=== PATIENT | male | born 1970 | race Two or more races ===

== ENCOUNTER 2020-09-19 13:01 | Emergency (ER) | payer MEDICAID, OTHER ==
[~2020-09-19] VITALS: Ht 157.5 cm; Wt 99.8 kg
[2020-09-19 13:02] VITALS: BP 114/81
== END 2020-09-19 15:28 | disposition home or self-care (01) ==
LOC: ER 13:01
DX: S00.81XA Abrasion of other part of head, initial encounter (principal); K21.9 Gastro-esophageal reflux disease without esophagitis; I10 Essential (primary) hypertension; W18.09XA Striking against other object with subsequent fall, initial encounter; Y93.89 Activity, other specified; Y92.89 Other specified places as the place of occurrence of the external cause; Y99.8 Other external cause status

== ENCOUNTER 2022-10-28 10:08 | Emergency (ER) | payer MEDICAID ==
[~2022-10-28] VITALS: Ht 152.4 cm; Wt 91.2 kg
[2022-10-28 11:17] VITALS: BP 143/78
== END 2022-10-28 12:59 | disposition home or self-care (01) ==
LOC: ER 10:08
DX: S02.2XXA Fracture of nasal bones, initial encounter for closed fracture (principal); S29.011A Strain of muscle and tendon of front wall of thorax, initial encounter; S05.12XA Contusion of eyeball and orbital tissues, left eye, initial encounter; R56.9 Unspecified convulsions; K21.9 Gastro-esophageal reflux disease without esophagitis; I10 Essential (primary) hypertension; W22.8XXA Striking against or struck by other objects, initial encounter; Y93.89 Activity, other specified; Y92.89 Other specified places as the place of occurrence of the external cause; Y99.8 Other external cause status
CPT/HCPCS: 70486; 71101

== ENCOUNTER 2023-05-28 12:45 | Emergency (ER) | payer MEDICAID ==
[2023-05-28 14:12] VITALS: BP 163/79; PULSE 68; RESP 15; TEMP 97.4; O2SAT 96
[2023-05-28] MEDS ORDERED: LIDOCAINE 1% HCL (LOCAL ANESTH.) INJ 20ML MDV IJ ONE (16:15)
[2023-05-28] MEDS ORDERED: CEPH500C PO (16:31)
== END 2023-05-28 16:31 | disposition home or self-care (01) ==
LOC: ER 12:45
DX: S01.01XA Laceration without foreign body of scalp, initial encounter (principal); R51.9 Headache, unspecified; I10 Essential (primary) hypertension; K21.9 Gastro-esophageal reflux disease without esophagitis; Z79.899 Other long term (current) drug therapy; W01.0XXA Fall on same level from slipping, tripping and stumbling without subsequent striking against object, initial encounter; Y93.89 Activity, other specified; Y92.89 Other specified places as the place of occurrence of the external cause; Y99.8 Other external cause status
CPT/HCPCS: 12002; 70450; 99284; J2001

== ENCOUNTER 2023-08-23 15:41 | Emergency (ER) | payer MEDICAID ==
[~2023-08-23] VITALS: Ht 170.2 cm; Wt 100.0 kg
[~2023-08-23 15:41] MED LIST: CEPH500C PO
[2023-08-23 20:30] VITALS: BP 142/89; PULSE 82; RESP 18; TEMP 98.4; O2SAT 98
== END 2023-08-23 21:13 | disposition home or self-care (01) ==
LOC: EDBD 15:41 → ER 15:41
DX: S09.90XA Unspecified injury of head, initial encounter (principal); R56.9 Unspecified convulsions; I10 Essential (primary) hypertension; K21.9 Gastro-esophageal reflux disease without esophagitis; W18.39XA Other fall on same level, initial encounter; Y93.89 Activity, other specified; Y92.89 Other specified places as the place of occurrence of the external cause; Y99.8 Other external cause status
CPT/HCPCS: 70450

== ENCOUNTER 2023-10-26 20:39 | Emergency (ER) | payer MEDICAID ==
[~2023-10-26] VITALS: Ht 160 cm; Wt 93.5 kg
[2023-10-27 01:10] VITALS: BP 150/90; PULSE 70; RESP 17; TEMP 98.1; O2SAT 94
== END 2023-10-27 01:10 | disposition home or self-care (01) ==
LOC: ER 20:39
DX: S09.8XXA Other specified injuries of head, initial encounter (principal); I10 Essential (primary) hypertension; K21.9 Gastro-esophageal reflux disease without esophagitis; W22.8XXA Striking against or struck by other objects, initial encounter; Y93.89 Activity, other specified; Y92.89 Other specified places as the place of occurrence of the external cause; Y99.8 Other external cause status
CPT/HCPCS: 70450

== ENCOUNTER 2023-11-29 18:57 | Emergency (ER) | payer MEDICAID ==
[~2023-11-29] VITALS: Ht 160 cm; Wt 90.6 kg
[2023-11-29] MEDS ORDERED: levETIRAcetam 1000 mg/100ml 100 ML IV ONE (19:00)
[2023-11-29 19:31] LABS: Basophils # (auto) 0 10 ^3/uL (0-0.2); Basophils % (auto) 0.6 % (0.0-2.0); Eosinophils # (auto) 0.2 10 ^3/uL (0-0.8); Eosinophils % (auto) 2.6 % (0.0-7.0); Hematocrit 42.4 % (41.0-53.0); Hemoglobin 14.6 g/dL (13.5-17.5); Lymphocytes # (auto) 3.2 10 ^3/uL (0.4-5.4); Lymphocytes % (auto) 43.6 % (10.0-50.0); Mean Corpuscular Hemoglobin 29.7 pg (28.0-32.0); Mean Corpuscular Hgb Conc. 34.5 g/dL (32.0-36.0); Mean Corpuscular Volume 86.1 fL (80.0-100.0); Monocytes # (auto) 0.9 10 ^3/uL (0-1.3); Monocytes % (auto) 12.8 % (0.0-12.0); Neutrophils # (auto) 2.9 10 ^3/uL (1.6-8.6); Neutrophils % (auto) 40.4 % (37.0-80.0); Nucleated Red Blood Cells % 0.1 %; Red Blood Cells 4.93 10^6/uL (4.5-5.90); Red Cell Distribution Width 12.7 % (11.8-14.3); White Blood Cell 7.3 10^3/uL (4.4-10.8)
[2023-11-29 19:50] VITALS: PULSE 78; RESP 14; O2SAT 98
[2023-11-29 19:53] LABS: Alanine Aminotransferase 31 U/L (7-40); Albumin 4.7 g/dL (3.2-4.8); Alkaline Phosphatase 67 U/L (46-116); Anion Gap 5 (5-15); Aspartate Aminotransferase 22 U/L (13-40); BUN/Creatinine Ratio 14.1 (10.0-20.0); Blood Alcohol < 3.0 mg/dL (<10); Blood Urea Nitrogen 10 mg/dL (9-23); Calcium 10.1 mg/dL (8.5-10.1); Carbon Dioxide 30 mmol/L (20-30); Chloride 94 mmol/L (98-107); Glucose 93 mg/dL (74-106); Sodium 129 mmol/L (136-145)
[2023-11-29 19:54] LABS: Bilirubin, Total 0.5 mg/dL (0.2-1.0); Total Protein 7.2 g/dL (5.7-8.2)
[2023-11-29 20:02] LABS: INR 1.14 (0.9-1.15); Partial Thromboplastin Time 33.6 SEC (24.5-34.5)
[2023-11-29] MEDS: levETIRAcetam 500 MG TAB PO ONE (20:04)
[2023-11-29 21:20] VITALS: BP 126/57; PULSE 64; RESP 12; TEMP 97.7; O2SAT 92
== END 2023-11-29 21:30 | disposition home or self-care (01) ==
LOC: ER 18:57
DX: R56.9 Unspecified convulsions (principal); I10 Essential (primary) hypertension; K21.9 Gastro-esophageal reflux disease without esophagitis; Z79.899 Other long term (current) drug therapy; Z79.01 Long term (current) use of anticoagulants
CPT/HCPCS: 36415; 70450; 71045; 80053; 80320; 83880; 85025; 85610; 85730

== ENCOUNTER 2023-12-02 16:57 | Emergency (ER) | payer MEDICAID ==
[~2023-12-02] VITALS: Ht 160 cm; Wt 89.0 kg
[2023-12-02 17:58] VITALS: BP 133/86; PULSE 76; RESP 18; TEMP 98.2; O2SAT 94
[2023-12-02] MEDS: IBUPROFEN 600 MG TAB PO ONE (18:53)
== END 2023-12-02 20:18 | disposition home or self-care (01) ==
LOC: ER 16:57
DX: S00.81XA Abrasion of other part of head, initial encounter (principal); I10 Essential (primary) hypertension; K21.9 Gastro-esophageal reflux disease without esophagitis; Z79.899 Other long term (current) drug therapy; W18.39XA Other fall on same level, initial encounter; Y93.89 Activity, other specified; Y92.89 Other specified places as the place of occurrence of the external cause; Y99.8 Other external cause status
CPT/HCPCS: 70450; 72125

== ENCOUNTER 2024-01-29 22:01 | Inpatient (IN) | payer MEDICAID ==
[~2024-01-29] VITALS: Ht 177.8 cm; Wt 101.6 kg
[2024-01-29 23:59] VITALS: PULSE 82; RESP 17; O2SAT 91
[2024-01-30 00:52] LABS: Urine Bacteria None Seen /hpf (None Seen)
[2024-01-30] MEDS: LORazepam 2MG/ML-1ML VIAL IV ONE (01:00)
[2024-01-30 01:05] LABS: Urine Blood Negative /uL (Negative); Urine Clarity Clear (Clear); Urine Color Light-Yellow (Yellow); Urine Protein, UAD 1+ (Negative); Urine Specific Gravity 1.014 (1.001-1.035); Urine Urobilinogen Normal (Negative); Urine WBC 1 /hpf (0 - 3)
[2024-01-30 01:21] LABS: Basophils # (auto) 0.1 10 ^3/uL (0-0.2); Basophils % (auto) 0.6 % (0.0-2.0); Eosinophils # (auto) 0.4 10 ^3/uL (0-0.8); Eosinophils % (auto) 3.6 % (0.0-7.0); Hemoglobin 14.6 g/dL (13.5-17.5); Lymphocytes # (auto) 3.1 10 ^3/uL (0.4-5.4); Lymphocytes % (auto) 29.4 % (10.0-50.0); Mean Corpuscular Hemoglobin 30.8 pg (28.0-32.0); Mean Corpuscular Hgb Conc. 35.6 g/dL (32.0-36.0); Mean Corpuscular Volume 86.6 fL (80.0-100.0); Monocytes # (auto) 1.3 10 ^3/uL (0-1.3); Neutrophils # (auto) 5.7 10 ^3/uL (1.6-8.6); Neutrophils % (auto) 54.4 % (37.0-80.0); Nucleated Red Blood Cells % 0.1 %; Red Blood Cells 4.73 10^6/uL (4.5-5.90); Red Cell Distribution Width 13.2 % (11.8-14.3); White Blood Cell 10.6 10^3/uL (4.4-10.8)
[2024-01-30 01:32] LABS: INR 1.13 (0.9-1.15); Partial Thromboplastin Time 28.2 SEC (24.5-34.5); Prothrombin Time 11.9 sec (9.3-11.8)
[2024-01-30] MEDS: levETIRAcetam 1000 mg/100ml 100 ML IV ONE (01:32)
[2024-01-30 02:00] LABS: Alanine Aminotransferase 26 U/L (7-40); Alkaline Phosphatase 71 U/L (46-116); Anion Gap 7 (5-15); Aspartate Aminotransferase 15 U/L (13-40); BUN/Creatinine Ratio 12.1 (10.0-20.0); Bilirubin, Total 0.3 mg/dL (0.2-1.0); Blood Alcohol < 3.0 mg/dL (<10); Blood Urea Nitrogen 8 mg/dL (9-23); Calcium 9.2 mg/dL (8.7-10.4); Carbon Dioxide 26 mmol/L (20-30); Chloride 101 mmol/L (98-107); Glucose 132 mg/dL (74-106); Magnesium 1.7 mg/dL (1.6-2.6); Potassium 3.7 mmol/L (3.5-5.1); Sodium 134 mmol/L (136-145)
[2024-01-30 02:01] LABS: Total Protein 6.5 g/dL (5.7-8.2)
[2024-01-30] MEDS ORDERED: ONDANSETRON HCL 4 MG/2 ML VIAL IV PRN (07:15)
[2024-01-30] MEDS ORDERED: ACETAMINOPHEN 325 MG TAB PO PRN (07:15)
[2024-01-30 08:47] VITALS: PULSE 65; RESP 12; O2SAT 96
[2024-01-30] MEDS: cefTRIAXone 1GM/50ML D5W 50 ML IV SCH (09:18)
[2024-01-30] MEDS: lamoTRIgine 100 MG TAB PO SCH (10:25)
[2024-01-30] MEDS: levETIRAcetam 500 MG TAB PO SCH (10:25)
[2024-01-30] MEDS: NIFEdipine ER 30 MG TAB PO SCH (10:26)
[2024-01-30] MEDS: ENOXAPARIN SOD 40 MG/0.4 ML SYRINGE SC SCH (10:27)
[2024-01-30] MEDS: AZITHROMYCIN 500MG/ 250ML 250 ML IV SCH (10:37)
[2024-01-30 14:00] VITALS: BP 152/98; PULSE 80; RESP 17; TEMP 98.7; O2SAT 93
[2024-01-30] MEDS: hydrALAZINE HCL 25 MG TAB PO SCH (14:22)
[2024-01-30 14:30] VITALS: BP 128/64; PULSE 60; RESP 17; TEMP 98.2; O2SAT 95
[2024-01-30 17:02] VITALS: BP 134/70; PULSE 70; RESP 16; TEMP 97.3; O2SAT 96
[2024-01-30 20:00] VITALS: RESP 18
[2024-01-30 21:00] VITALS: BP 144/71; PULSE 77; RESP 20; TEMP 98.7; O2SAT 94
[2024-01-31] VITALS (7 sets, daily range): BP systolic 134–143; BP diastolic 64–75; PULSE 68–73; RESP 16–18; TEMP 97.5–98.8; O2SAT 93–99
[2024-01-31 05:11] LABS: Amphetamine Screen, Urine Neg (NEGATIVE); Barbiturate Scree,Urine Neg (NEGATIVE); Benzodiazephine Screen, Urine Neg (NEGATIVE)
[2024-01-31 05:12] LABS: Cannabinoid Screen, Urine Neg (NEGATIVE); Cocaine Screen, Urine Neg (NEGATIVE); Opiate Scree,Urine Neg (NEGATIVE); Phencyclidine Screen, Urine Neg (NEGATIVE)
[2024-01-31 06:18] LABS: Basophils # (auto) 0 10 ^3/uL (0-0.2); Basophils % (auto) 0.5 % (0.0-2.0); Eosinophils # (auto) 0.3 10 ^3/uL (0-0.8); Eosinophils % (auto) 3.7 % (0.0-7.0); Hematocrit 45.7 % (41.0-53.0); Hemoglobin 15.7 g/dL (13.5-17.5); Lymphocytes % (auto) 46.8 % (10.0-50.0); Mean Corpuscular Hemoglobin 30.8 pg (28.0-32.0); Mean Corpuscular Hgb Conc. 34.3 g/dL (32.0-36.0); Mean Corpuscular Volume 89.6 fL (80.0-100.0); Monocytes % (auto) 11.7 % (0.0-12.0); Neutrophils # (auto) 3.2 10 ^3/uL (1.6-8.6); Neutrophils % (auto) 37.3 % (37.0-80.0); Nucleated Red Blood Cells % 0.3 %; Red Cell Distribution Width 13.3 % (11.8-14.3); White Blood Cell 8.6 10^3/uL (4.4-10.8)
[2024-01-31 08:20] LABS: Chloride 100 mmol/L (98-107); Potassium 4.3 mmol/L (3.5-5.1); Sodium 134 mmol/L (136-145)
[2024-01-31 08:21] LABS: Anion Gap 7 (5-15); Calcium 9.2 mg/dL (8.7-10.4); Carbon Dioxide 27 mmol/L (20-30)
[2024-01-31 08:26] LABS: BUN/Creatinine Ratio 13.6 (10.0-20.0); Blood Urea Nitrogen 8 mg/dL (9-23); Glucose 84 mg/dL (74-106)
[2024-02-01 01:00] VITALS: BP 154/76; PULSE 60; RESP 20; TEMP 98.3; O2SAT 94
[2024-02-01 05:00] VITALS: BP 126/84; PULSE 78; RESP 18; TEMP 98.2; O2SAT 95
[2024-02-01 09:00] VITALS: BP 147/83; PULSE 75; RESP 18; TEMP 97.6; O2SAT 95
[2024-02-01] MEDS: AZITHROMYCIN 250 MG TAB PO SCH (09:48)
[2024-02-01 13:00] VITALS: BP 136/73; PULSE 64; RESP 18; TEMP 98.4; O2SAT 93
[2024-02-01 17:00] VITALS: BP 136/72; PULSE 73; RESP 18; TEMP 98.2; O2SAT 93
[2024-02-01 21:00] VITALS: BP 137/65; PULSE 75; RESP 18; TEMP 98.4; O2SAT 94
[2024-02-02 05:00] VITALS: BP 122/66; PULSE 74; RESP 17; TEMP 97.9; O2SAT 93
[2024-02-02 07:52] VITALS: BP 119/68; PULSE 77; RESP 18; TEMP 98.4; O2SAT 100
[2024-02-02 12:10] VITALS: BP 130/68; PULSE 80; RESP 18; TEMP 97.7; O2SAT 92
[2024-02-02 16:44] VITALS: BP 124/80; PULSE 61; RESP 20; TEMP 98.6; O2SAT 93
[2024-02-02 21:00] VITALS: BP 148/70; PULSE 109; RESP 18; TEMP 98.3; O2SAT 92
[2024-02-03 05:00] VITALS: BP 149/67; PULSE 79; RESP 18; TEMP 98.3; O2SAT 93
[2024-02-03 08:00] VITALS: BP 128/64; PULSE 88; PULSE 94; RESP 20; TEMP 97.6; O2SAT 91; O2SAT 93
[2024-02-03 12:00] VITALS: BP 144/69; PULSE 87; RESP 19; TEMP 98.5; O2SAT 94
[2024-02-03 16:00] VITALS: BP 134/69; PULSE 86; RESP 17; TEMP 98.3; O2SAT 93
[2024-02-03] MEDS: LORazepam 2MG/ML-1ML VIAL ONE (20:40)
[2024-02-03 20:45] VITALS: BP 154/84; PULSE 118; RESP 21; O2SAT 95
[2024-02-04] VITALS (8 sets, daily range): BP systolic 120–137; BP diastolic 70–85; PULSE 76–89; RESP 16–20; TEMP 97.6–98.8; O2SAT 92–96
[2024-02-04 18:23] LABS: Basophils # (auto) 0.1 10 ^3/uL (0-0.2); Basophils % (auto) 0.7 % (0.0-2.0); Eosinophils # (auto) 0.2 10 ^3/uL (0-0.8); Eosinophils % (auto) 1.9 % (0.0-7.0); Hematocrit 43.5 % (41.0-53.0); Lymphocytes # (auto) 3.9 10 ^3/uL (0.4-5.4); Lymphocytes % (auto) 47.3 % (10.0-50.0); Mean Corpuscular Hemoglobin 30.3 pg (28.0-32.0); Mean Corpuscular Hgb Conc. 34.6 g/dL (32.0-36.0); Mean Corpuscular Volume 87.5 fL (80.0-100.0); Monocytes % (auto) 12.5 % (0.0-12.0); Neutrophils # (auto) 3.1 10 ^3/uL (1.6-8.6); Neutrophils % (auto) 37.6 % (37.0-80.0); Nucleated Red Blood Cells % 0.2 %; Red Blood Cells 4.97 10^6/uL (4.5-5.90); Red Cell Distribution Width 13.4 % (11.8-14.3); White Blood Cell 8.2 10^3/uL (4.4-10.8)
[2024-02-04 19:11] LABS: Erythrocyte Sedimentation Rate 6 mm/hr (0-20)
[2024-02-05 00:56] VITALS: BP 136/71; PULSE 72; RESP 18; O2SAT 93
[2024-02-05 04:59] VITALS: BP 146/88; PULSE 72; RESP 18; TEMP 98.1; O2SAT 94
[2024-02-05 09:00] VITALS: BP 131/78; PULSE 69; RESP 18; TEMP 97.5; O2SAT 94
[2024-02-05 13:10] VITALS: BP 126/69; PULSE 75; RESP 18; TEMP 97.7; O2SAT 94
[2024-02-05 17:00] VITALS: BP 121/64; PULSE 66; RESP 18; TEMP 97.6; O2SAT 94
[2024-02-05 21:00] VITALS: BP 130/69; PULSE 67; RESP 18; TEMP 98.5; O2SAT 94
[2024-02-06 01:00] VITALS: BP 127/73; PULSE 70; RESP 18; TEMP 98; O2SAT 94
[2024-02-06 05:00] VITALS: BP 126/75; PULSE 73; RESP 18; TEMP 98.5; O2SAT 92
[2024-02-06 08:06] LABS: Complement C3 148 mg/dL (82-167); Immunoglobulin A 286 mg/dL (90-386)
[2024-02-06 09:00] VITALS: BP 135/78; PULSE 68; RESP 20; TEMP 97.8; O2SAT 97
[2024-02-06 13:00] VITALS: BP 130/62; PULSE 84; RESP 18; TEMP 98.1; O2SAT 95
[2024-02-06 16:30] VITALS: BP 118/66; PULSE 72; RESP 18; TEMP 98.5; O2SAT 93
[2024-02-06] MEDS: methylPREDNISolone SOD SUCC 40 MG/ML VL IV ONE (16:50)
[2024-02-06] MEDS: LORazepam 2MG/ML-1ML VIAL IV PRN (18:13)
== END 2024-02-06 18:30 | disposition home or self-care (01) | DRG 53 ==
LOC: ER 22:01 → EDBD 22:01 → OVERFLOW 01-30 07:09 → CENTRAL 01-30 14:10
PROVIDERS: ADMIT Family Medicine; ATTEND Nurse Practitioner Acute Care
DX: G40.89 Other seizures (principal); J69.0 Pneumonitis due to inhalation of food and vomit; F06.8 Other specified mental disorders due to known physiological condition; E66.9 Obesity, unspecified; I10 Essential (primary) hypertension; F63.81 Intermittent explosive disorder; F09 Unspecified mental disorder due to known physiological condition; F91.9 Conduct disorder, unspecified; K21.9 Gastro-esophageal reflux disease without esophagitis; G47.00 Insomnia, unspecified; Z68.32 Body mass index [BMI] 32.0-32.9, adult
CPT/HCPCS: 36415; 70450; 71045; 80048; 80053; 80307; 80320; 81001; 82784; 82962; 83735; 83880; 84484; 85025; 85610; 85652; 85730; 86160; 93005; 99291; G0378

== ENCOUNTER 2024-02-13 23:36 | Emergency (ER) | payer MEDICAID ==
[~2024-02-13] VITALS: Ht 167.6 cm; Wt 95.5 kg
[2024-02-14] VITALS: PULSE 68; RESP 18; TEMP 98.7; O2SAT 96
[2024-02-14 02:00] VITALS: BP 151/58; PULSE 63; RESP 13; O2SAT 93
== END 2024-02-14 03:03 | disposition home or self-care (01) ==
LOC: EDBD 23:36 → ER 23:36 → EDUNIT# 23:36 → ER 02-14 03:00
DX: T14.8XXA Other injury of unspecified body region, initial encounter (principal); R56.9 Unspecified convulsions; K21.9 Gastro-esophageal reflux disease without esophagitis; I10 Essential (primary) hypertension; Z98.890 Other specified postprocedural states; W18.39XA Other fall on same level, initial encounter; Y93.89 Activity, other specified; Y92.89 Other specified places as the place of occurrence of the external cause; Y99.8 Other external cause status
CPT/HCPCS: 70450

== ENCOUNTER 2024-06-07 20:05 | Emergency (ER) | payer MEDICAID ==
[~2024-06-07] VITALS: Ht 160 cm; Wt 93.8 kg
--- NOTE | 2024-06-07 22:43 | DVH ---
EXAM: CT HEAD WITHOUT CONTRAST INDICATION: fall head injury s/p seizure TECHNIQUE: CT of the head without intravenous contrast. Radiation Dose Information: CT Dose: CTDI volume is 69.15 mGy. Dose-length product is 1362.3 mGy*cm The dose indicators for CT are the volume Computed Tomography (CT) Dose Index (CTDIvol) and the Dose Length Product (DLP), and are measured in units of mGy and mGy-cm, respectively. These indicators are not patient dose, but values generated from the CT scanner acquisition factors. The report includes radiation exposure data for exposures received during this examination. COMPARISON: CT HEAD WITHOUT CONTRAST on DOS: 02/14/24, CT HEAD WITHOUT CONTRAST on DOS: 01/30/24, CT CER VICAL WITHOUT CONTRAST on DOS: 12/02/23 FINDINGS: There is no evidence of acute intracranial hemorrhage, extra-axial collection, mass effect, midline s hift, herniation or hydrocephalus. 8 9 mm collection of calcifications in the right temporal lobe. The ventricles, sulci and cisterns are age appropriate. The mendoza-white differentiation is intact. Patchy periventricular and subcortical white matter hypoattenuation is nonspecific but may be related to small vessel ischemic disease. The visualized paranasal sinuses and mastoid air cells are clear. Area of questionable scalp edema in the occipital region. No underlying fracture IMPRESSION: 1. No acute intracranial hemorrhage. 2. No CT findings of territorial ischemia. 3. 8-9 mm grouping of calcifications right temporal lobe unchanged from 02/14/2024. 4. No significant change from 02/14/2024.
--- NOTE | 2024-06-07 22:54 | ED.PDOC ---
HPI (NEURO) HPI Comments This is a 53-year-old male presents to the ED history of seizures status post seizure fall injury. Patient is a resident of care facility he is brought in by the care provider who witnessed a seizure and a fall prior to arrival in the ER. Per care provider patient has got history of seizures she states around 6:45 p.m. patient fell from standing hit the right side of his head on the table and fell on the floor. Care provider states witnessed with negative LOC notes patient acting appropriately denies any bleeding or head trauma external no signs and symptoms of seizure activity at this time. Chief Complaint: Fall Injury Time Seen by MD: 20:24 Primary Care Provider: JANE Reviewed Notes: Nurses Notes, Medications, Allergies Information Source: Patient (And care provider) Mode of Arrival: Ambulatory Past Medical History PAST MEDICAL HISTORY: GERD, HTN, Seizures Family History Family History: Reviewed,noncontributory to illness, Unknown Social History Smoker: Non-Smoker Alcohol: Denies ETOH Use Drugs: Denies Drug Use Lives In: Assisted Care Constitutional: denies: chills, diaphoresis, fatigue, fever, malaise, sweats, weakness, others EENTM: denies: blurred vision, double vision, ear bleeding, ear discharge, ear drainage, ear pain, ear ringing, eye pain, eye redness, hearing loss, mouth pain, mouth swelling, nasal discharge, nose bleeding, nose congestion, nose pain, photophobia, tearing, throat pain, throat swelling, voice changes, others Respiratory: denies: cough, hemoptysis, orthopnea, SOB at rest, shortness of breath, SOB with excertion, stridor, wheezing, others Cardiovascular: denies: chest pain, dizzy spells, diaphoresis, Dyspnea on exertion, edema, irregular heart beat, left arm pain, lightheadedness, palpitations, PND, syncope, others Gastrointestinal: denies: abdomen distended, abdominal pain, blood streaked bowels, constipated, diarrhea, dysphagia, difficulty swallowing, hematemesis, melena, nausea, poor appetite, poor fluid intake, rectal bleeding, rectal pain, vomiting, others Genitourinary: denies: burning, dysuria, flank pain, frequency, hematuria, incontinence, penile discharge, penile sore, pain, testicle pain, testicle swelling, urgency, others Neurological: denies: dizziness, fainting, headache, left sided numbness, left sided weakness, numbness, paresthesia, pre-existing deficit, right sided numbness, right sided weakness, seizure, speech problems, tingling, tremors, weakness, others Musculoskeletal: denies: back pain, gout, joint pain, joint swelling, muscle pain, muscle stiffness, neck pain, others Integumetry: denies: bruises, change in color, change in hair/nails, dryness, laceration, lesions, lumps, rash, wounds, others Allergic/Immunocompromised: denies: Difficulty Healing, Frequent Infections, Hives, Itching, others Hematologic/Lymphatic: denies: anemia, blood clots, easy bleeding, easy bruising, swollen glands, others Endocrine: denies: excessive hunger, excessive sweating, excessive thirst, excessive urination, flushing, intolerance to cold, intolerance to heat, unexplained weight gain, unexplained weight loss, others Psychiatric: denies: anxiety, bipolar disorder, depression, hopeless, panic dis order, schizophrenia, sleepless, suicidal, others Physical Exam General Appearance: No Apparent Distress, Normal HEENT: Normal ENT Inspection, Pharynx Normal, TMs Normal Neck: Full Range of Motion, Non-Tender Respiratory: Chest Non-Tender, Lungs Clear, No Respiratory Distress, Normal Breath Sounds Cardiovascular: No Edema, No JVD, No Murmur, No Gallop, Normal Peripheral Pulses, Regular Rate/Rhythm Breast Exam: Deferred Gastrointestinal: No Organomegaly, Non Tender, No Pulsatile Mass, Normal Bowel Sounds, Soft Genitalia: Deferred Pelvic: Deferred Rectal: Deferred Extremities: Normal capillary refill, Normal inspection, Normal range of motion, Non-tender, No pedal edema Musculoskeletal : Apperance: Normal Neurologic: Alert, client resolution specialist II-XII nml as Tested, No Motor Deficits, Normal Affect, Normal Mood, No Sensory Deficits Cerebellar Function: Normal Reflexes: Normal Skin: Dry, Normal Color, Warm Lymphatic: No Adenopathy Was a procedure done? Was a procedure done?: No Differential Diagnosis (SZ) Seizure: Closed Head Injury X-Ray, Labs, Meds, VS Vital Signs Date Time Temp Pulse Resp B/P (MAP) Pulse Ox O2 Delivery O2 Flow Rate FiO2 06/07/24 20:52 98.0 78 18 145/76 (99) 94 X-Ray, Labs, Meds, VS Comment CT head negative for any acute findings no noted bleeds or skull fractures. Provider states patient acting appropriately at this time at bedside no signs and symptoms of seizure activity. Caregivers requesting and patient requesting discharge at this time. Follow up with PCP in 2-3 days, ER return precautions given. Caregiver and patient agree with discharge plan of care. Time of 1ST Reevaluation: 22:49 Reevaluation 1ST: Improved Patient Education/Counseling: Diagnosis, Treatment, Prognosis, Need For Follow Up Family Education/Counseling: Diagnosis, Treatment, Prognosis, Need For Follow Up Departure 1 Departure Time of Disposition: 22:49 Impression: Primary Impression: Closed head injury Qualified Codes: S09.90XA - Unspecified injury of head, initial encounter Additional Impression: Seizures Disposition: 01 HOME / SELF CARE / HOMELESS Condition: Stable Discharged With: Other (Care provider) Critical Care Note Critical Care Time?: No Stability Stability form required: VERITO Ragsdale Jun 07, 2024 22:54
[2024-06-07 23:08] VITALS: BP 127/57; PULSE 78; RESP 18; TEMP 98.3; O2SAT 93
== END 2024-06-07 23:27 | disposition home or self-care (01) ==
LOC: ER 20:05
DX: S09.8XXA Other specified injuries of head, initial encounter (principal); R56.9 Unspecified convulsions; I10 Essential (primary) hypertension; K21.9 Gastro-esophageal reflux disease without esophagitis; W22.03XA Walked into furniture, initial encounter; Y93.89 Activity, other specified; Y92.89 Other specified places as the place of occurrence of the external cause; Y99.8 Other external cause status
CPT/HCPCS: 70450